=== PATIENT | female | born 1960 | race Caucasian/White ===

== ENCOUNTER → 2023-04-17 14:47 | Outpatient (REF) | payer SELFPAY | LOC: HWRAD 14:47 | PROVIDERS: ATTENDING PHYSICIAN Nurse Practitioner | DX: E78.2 Mixed hyperlipidemia (principal); Z82.49 Family history of ischemic heart disease and other diseases of the circulatory system | CPT/HCPCS: 75571 ==

== ENCOUNTER 2023-08-23 06:11 | Day surgery (SDC) | payer OTHER, SELFPAY ==
[2023-08-12 09:36] VITALS: BMI 32.4
[2023-08-23] VITALS (10 sets, daily range): BP systolic 97–156; BP diastolic 63–88; BMI 32.4
[2023-08-23] MEDS: NORMOSOL-R 1000 IV (06:31)
[2023-08-23] MEDS: TYLENOL 1000 MG PO (06:32)
--- NOTE | 2023-08-23 06:47 | HP.FOC2 ---
Focused History & Physical
Chief Complaint
HPI:
Chief Complaint: Symptomatic cholelithiasis
HPI / Indication for Planned Procedure: Patient is a 62-year-old female recently seen in outpatient surgical evaluation after a bout of epigastric abdominal pain with anorexia and nausea on New prompted emergency department evaluation notable
for cholelithiasis. She presents today for cholecystectomy for management of episodes of symptomatic cholelithiasis
Relevant Past Medical History: Other (Anxiety/panic disorder, vitamin D deficiency, hyperlipidemia, hyperglycemia, psoriasis)
Relevant Social History: Negative
Relevant Family History: Negative
Relevant Past Surgical History: Positive for (Uterine ablation, left knee repair torn meniscus)
Review of Systems
Review of Pertinent Systems: All Systems Negative
Medication
See Medication form for detailed medications: Yes
Medication List (including Herbals & OTC):
biotin 1 cap PO .OCCASSIONALLY 08/20/23
cholecalciferol (vitamin D3) 50 mcg (2,000 unit) capsule (Vitamin D3) 50 mcg PO .OCCASSIONALLY 08/20/23
escitalopram oxalate 5 mg tablet (Lexapro) 5 mg PO DAILY 08/20/23
multivitamin 1 tab PO .OCCASSIONALLY 08/20/23
Medications Reviewed: Yes
Allergies and Reactions
Patient has Allergies: No
Noted Allergies and Reactions:
Allergy/AdvReac Type Severity Reaction Status Date / Time
No Known Allergies Allergy Verified 08/23/23 06:18
Pertinent Physical Exam
All Other Systems: Negative
Head/Neck: Normal
Lungs: Normal
Heart: Normal
Abdomen: Normal
Extremities: Normal
Neurological: Normal
Diagnosis / Assessment
8-year-old female presenting for cholecystectomy for management of history of symptomatic cholelithiasis
Plan / Procedure
Laparoscopic cholecystectomy with intraoperative cholangiogram
Anesthesia/Sedation to be done by Anesthesia Provider: Yes
--- NOTE | 2023-08-23 07:04 | W.SUR.PREOP ---
Pre-Operative Surgical Note
-
I have examined this patient prior to the performance of the scheduled procedure.
The patient's condition is unchanged from the time of the current History and
Physical and the patient is able to undergo the scheduled procedure.
--- NOTE | 2023-08-23 09:03 | W.IMMPOSTOP ---
Addendum entered and electronically signed by Rehan Salinas MD 08/23/23 09:13:
#[id number]
Original Note:
Surgical Immed Post Op Note
-
Primary Surgeon: Brad
Assisting Surgeon: Delmi Peterson PA-C
Pre-op Diagnosis: Symptomatic cholelithiasis
Post-op Diagnosis: Symptomatic cholelithiasis
Procedure Performed: Laparoscopic cholecystectomy intraoperative cholangiogram
Anesthesia Type: GETA +0.25% Marcaine
Specimen / Cultures: Gallbladder
Estimated Blood Loss: 4 mL
Complications: None immediate
Operative Findings: Physiologically distended gallbladder with stones. Normal biliary anatomy. Intraoperative cholangiogram normal. Cystic duct and artery individually controlled with hemoclips. No entry into the gallbladder with dissection.
Gallbladder extracted at epigastric port site.
The assistance of Delmi Peterson PA-C was required due to the complexity of the procedure. During the procedure Delmi Peterson PA-C assisted with retraction, gallbladder removal, and closure of the incisions.
--- NOTE | 2023-08-23 09:43 | SUR.PHASEI ---
Sat's occasionally dropping to 86% on RA when falling asleep but come right back up. When awake and talking sat's 97%. Dr. Moura notified and okay to move to [facility]. Pt instructed to take deep breaths. Will continue to monitor.
== END 2023-08-23 11:00 | disposition home or self-care (01) ==
LOC: SDS 06:11
PROVIDERS: ATTENDING PHYSICIAN Surgery; FAMILY PHYSICIAN Nurse Practitioner
DX: K80.10 Calculus of gallbladder with chronic cholecystitis without obstruction (principal)
CPT/HCPCS: 47563; 88304; 36415; 74300; 76000; 93005

== ENCOUNTER → 2024-06-10 10:26 | Outpatient (REF) | payer OTHER, SELFPAY | LOC: HWRAD 10:26 | DX: M25.552 Pain in left hip (principal) | CPT/HCPCS: 73502 ==

== ENCOUNTER → 2024-09-01 13:48 | Outpatient (REF) | payer OTHER, SELFPAY | LOC: WDC 13:48 | PROVIDERS: ATTENDING PHYSICIAN Nurse Practitioner Women's Health | DX: Z12.81 Encounter for screening for malignant neoplasm of oral cavity (principal); M81.0 Age-related osteoporosis without current pathological fracture; Z12.31 Encounter for screening mammogram for malignant neoplasm of breast | CPT/HCPCS: 77063; 77067; 77080 ==